=== PATIENT | male | born 1955 | race Caucasian/White ===

== ENCOUNTER → 2018-06-10 | Outpatient (CLI) | payer OTHER, MEDICARE | LOC: FIMAGING 10:01 | PROVIDERS: ATTEND Family Medicine | DX: Z13.6 Encounter for screening for cardiovascular disorders (principal); I25.10 Atherosclerotic heart disease of native coronary artery without angina pectoris; N20.0 Calculus of kidney; Z87.891 Personal history of nicotine dependence ==